=== PATIENT | female | born 1970 | race Caucasian/White ===

== ENCOUNTER → 2018-01-02 | Outpatient (CLI) | payer OTHER, BC ==
[~2018-01-02] MED LIST: ACET325T49 PO; AZTH250C PO; CALC500T7 PO; CLN.1T PO; CLON0.25 PO; CLON1TAB PO; CLON1TAB36 PO; CLON2TAB PO; CLON2TAB3 PO; DILT60TA PO; DOXE10CA PO; DOXE10CA29; DOXE10CA29 PO; ENAL2.5T PO; FAMO20TA5 PO; HYDR118S10 PO; IBUP-30 PO; IMIP50TA2 PO; IMIP50TA4 PO; ISOM1CAP11 PO; Ibuprofen PO; LEVO500T80 PO; LORA1TAB; MECL-124 PO; Metoprolol Succinate PO; NF-CARB200 PO; ONDAN4ODT PO; PROP10TA8 PO; PROPANOL PO; QUET300T44; QUET400T PO; QUET400T3 PO; SCOP1PAT TD; SIMV20TA3 PO; TOPI50TA2 PO; ZLP10T PO; ZOLP10TA PO; ZOLP10TA5
[2018-01-02 20:47] LABS: ALANINE AMINOTRANSFERASE 83 U/L (0-55); ALBUMIN 4.2 GM/DL (3.2-4.5); ALKALINE PHOSPHATASE 218 U/L (40-136); AMMONIA 84 UMOL/L (11-32); BUN/CREATININE RATIO 10; CALCIUM 10.9 MG/DL (8.5-10.1); CARBON DIOXIDE 12 MMOL/L (21-32); CHLORIDE 94 MMOL/L (98-107); CREATININE SERUM 0.97 MG/DL (0.60-1.30); GFR ESTIMATED > 60; GLUCOSE 94 MG/DL (70-105); POTASSIUM 3.8 MMOL/L (3.6-5.0); SALICYLATE < 5.0 MG/DL (5.0-20.0); SODIUM 135 MMOL/L (135-145); TOTAL PROTEIN 7.7 GM/DL (6.4-8.2)
[2018-01-02 20:50] LABS: ACETAMINOPHEN < 10 UG/ML (10-30)
== END ==
LOC: LAB 20:28
PROVIDERS: ATTEND Nurse Practitioner Family
DX: Z53.9 Procedure and treatment not carried out, unspecified reason (principal)
CPT/HCPCS: 36415; 80053; 80329; 82140; 84443